=== PATIENT | male | born 1975 | race Caucasian/White ===

== ENCOUNTER 2020-09-24 09:48 | Outpatient (REF) | payer BC, SELFPAY | END 2020-09-24 09:49 | disposition home or self-care (01) | LOC: HO.XRAY 09:48 | PROVIDERS: PCP Family Medicine; Referring Provider Family Medicine; Visit Provider Family Medicine | DX: Z13.89 Encounter for screening for other disorder (principal) ==

== ENCOUNTER 2020-09-26 14:10 | Outpatient (REF) | payer BC, SELFPAY ==
--- NOTE | 2020-09-26 14:13 | FL_ITS ---
EXAMINATION: XR BARIUM SWALLOW CLINICAL INFORMATION: Dysphagia COMPARISON: None TECHNIQUE: Fluoroscopy guidance was provided for barium swallow performed by the speech and hearing department. The patient was administered liquid barium and various food media mixed with barium. FINDINGS: No aspiration or penetration is seen with any media. FLUOROSCOPY TIME: 0.8 DOSE AREA PRODUCT: 2.5 ornelas per centimeter squared. Total dose 8.5 mgy. 1 saved fluoroscopic image. FL/FL barium swallow modified IMPRESSION: Fluoroscopic guidance performed for modified barium swallow. No aspiration or seen. See speech and hearing report for detailed findings.
== END 2020-09-26 14:11 | disposition home or self-care (01) ==
LOC: HO.XRAY 14:10
PROVIDERS: PCP Family Medicine; Visit Provider Family Medicine
DX: R13.10 Dysphagia, unspecified (principal)
CPT/HCPCS: 74230; 92611

== ENCOUNTER 2022-06-20 14:20 | Outpatient (REF) | payer BC, SELFPAY ==
--- NOTE | ~2022-06-20 | XR_ITS ---
EXAMINATION: XR LUMBOSACRAL SPINE CLINICAL INFORMATION: Lower back pain. COMPARISON: None TECHNIQUE: AP and lateral views of the lumbar spine and lateral view of the lumbosacral junction. FINDINGS: The vertebral bodies and posterior elements are normal. The disc spaces are preserved, and the vertebral alignment is normal. There is multi-level mild lower thoracic and lumbar spondylosis. The paraspinal soft tissues are normal. Ingested particulate matter is noted within the colon. XR/XR lumbar spine 2-3V IMPRESSION: 1. No acute fracture or spondylolisthesis is seen. 2. The lumbar disc spaces are well-maintained. 3. There is multi-level mild lower thoracic and lumbar anterior spondylosis.
== END 2022-06-20 14:21 | disposition home or self-care (01) ==
LOC: HO.XRAY 14:20
PROVIDERS: PCP Family Medicine; Visit Provider Family Medicine
DX: M54.50 Low back pain, unspecified (principal)
CPT/HCPCS: 72100

== ENCOUNTER 2022-07-22 07:00 | Outpatient (RCR) | payer BC, SELFPAY | END 2022-08-26 09:11 | disposition home or self-care (01) | LOC: HO.PTCHIC 07:00 | PROVIDERS: PCP Family Medicine; Visit Provider Family Medicine | DX: M54.32 Sciatica, left side (principal) | CPT/HCPCS: 97012; 97014; 97110; 97112; 97140; 97161; 97530 ==

== ENCOUNTER 2023-10-15 08:43 | Outpatient (AMB) | payer BC, SELFPAY ==
--- NOTE | 2023-10-15 08:54 | MHC.OFFWIV ---
Intake Vital Signs 10/15/23 09:42 Height 5 ft 11 in Weight 227 lb BMI 31.7 BP 120/80 Blood Pressure Location Lt brachial Position Sitting Pulse 79 Pulse Source Pulse Oximeter Temp 97.5 F Temp Source Temporal Artery Scan Pulse Oximetry (%) 98 Oxygen Delivery Method Room Air Intake Visit Reasons: EP Stomach Bug [phone] Intake Note: pt is here today for stomach bug started 1 week ago Patient Tobacco Use Status: Never used Tobacco Allergies No Known Allergies [No Known Allergies*] Allergy (Verified 10/15/23 09:36) Do you need a note to return to daycare/school/sports/work: No HPI HPI Comments History of Present Illness Details He presents to office with 1-2 weeks of stomach bug + upset stomach Loose stool He denies recent travel No one else sick He denies blood or black stool No fever or chills He said no pain, more uncomfortable 04/27 He denies abdominal surgeries He has tried imodium, vitamin C/D3 without relief He said loose stool every time No nausea/vomiting PFSH Social History Patient Tobacco Use Status: Never used Tobacco Review of Systems Const Denies body aches, Denies chills, Denies fatigue and Denies fever(s) ENT Denies dysphagia, Denies otalgia, Denies nasal congestion and Denies sore throat Card Denies chest pain and Denies dyspnea Resp Denies cough and Denies dyspnea GI Reports abdominal pain (cramping), Denies melena, Denies hematochezia, Reports change in stool character, Denies constipation, Denies dysphagia, Denies heartburn, Denies fecal incontinence, Reports loose stools, Denies nausea and Denies vomiting Denies urinary frequency, Denies urinary hesitancy, Denies urinary incontinence and Denies urinary urgency Musc Denies back pain Endo Denies fatigue Physical Exam Vital Signs: Last Vital Signs Temp 97.5 F 10/15/23 09:42 Pulse 79 10/15/23 09:42 BP 120/80 10/15/23 09:42 Pulse Ox 98 10/15/23 09:42 Oxygen Delivery Method Room Air 10/15/23 09:42 BMI result Body Mass Index 31.7 General: Non-toxic, NAD. Speaking full sentences. Skin: Warm dry throughout Eye: PERRL, EOMI HENT: Airway patent. Uvula midline. No pharyngeal erythema or edema. No COLORIST PHOTOGRAPHY. Mucosal membranes moist Respiratory: CTA bilaterally. No wheezes, rales or rhonchi Cardiac: RRR. No murmur Abdominal: BS present. Non-tender throughout. No palpable masses. No abdominal distention or pusatile mass. No CVAT MSK: Full ROM extremities. Neurology: A/O. No aphasia or facial droop. Gait without abnormality Psych: Good mood and affect Assessment & Plan Assessment & Plan (1) Diarrhea: Code(s): R19.7 - Diarrhea, unspecified Qualifiers: Diarrhea type: presumed infectious Qualified Code(s): R19.7 - Diarrhea, unspecified Plan: Patient seen and evaluated. No acute abdomen on exam Moist mucosal membranes We dicussed differential such as dehydration, diverticulitis, colitis, parasite and will obtain stool cultures. Discussed symptoms of diverticulitis or concerns for ED such as blood, black stools, worsening/constant pain, dehydration, incontinence. Will follow bland diet and fluid hydration PCP follow up for ? GI referral Patient gave verbal understanding and had no additional questions or concerns at time of discharge All questions answered Orders: Orders GI Panel Today R19.7 - Diarrhea, unspecified Ova and Parasite Today R19.7 - Diarrhea, unspecified Coding Level of Care Code Est Pt Level 3 (04283) Diagnoses Diarrhea of presumed infectious origin R19.7 Diarrhea type: presumed infectious
[2023-10-15 09:42] VITALS: BP 120/80; PULSE 79; TEMP 36.4; O2SAT 98; BMI 31.7
== END 2023-10-15 10:13 | disposition home or self-care (01) ==
PROVIDERS: PCP Nurse Practitioner Family; Visit Provider Physician Assistant
DX: R19.7 Diarrhea, unspecified (principal)
CPT/HCPCS: 99213

== ENCOUNTER 2023-11-04 14:18 | Outpatient (AMB) | payer BC, SELFPAY ==
--- NOTE | 2023-11-04 14:21 | A.OFFPC_ITS ---
Vital Signs 11/04/23 14:24 Height 5 ft 11 in Weight 230 lb BMI 32.1 BP 130/90 H Blood Pressure Location Lt brachial Position Sitting Pulse 68 Pulse Source Pulse Oximeter Pulse Oximetry (%) 97 Oxygen Delivery Method Room Air Intake Visit Reasons: New patient-establish care Intake Note: Patient here to establish care and would like to talk about eczema. Allergies No Known Allergies [No Known Allergies*] Allergy (Verified 11/04/23 14:46) Medication List - Last Reconciled 11/04/23 by EDWARD Ramirez omeprazole 20 mg PO BID Tobacco use date assessed: 11/04/23 Dental Screening Dental Screen Date: 11/04/23 Did you have a dental visit in the last 12 months?: Yes Did you have a dental problem in the last 6 months where you did not have access to dental care?: No Was dental information given to patient?: Patient has dentist HPI New patient-establish care HPI Details New pt is here for a PE. Will order labs. Colon screen is up to date according to pt. Pt follows up with GI in [place], will track down notes. Pt's blood pressure is elevated. Will have pt monitor his blood pressure at home and drop off readings in the near future. Denies chest pain, shortness of breath, headach e, dizziness, and blurred vision. [facility] Medical History (Updated 11/04/23 @ 15:03 by EDWARD Ramirez) HTN (hypertension) Anxiety and depression Eczema Social History Housing: House Patient Tobacco Use Status: Never used Tobacco e-Cigarette/Vaping Use: Never Used service: No Current occupational status: employed Current occupation: [employer] Cognitive needs: No Hearing needs: No Vision needs: Yes Questionnaire PHQ-9 Over the last 2 weeks, how often have you been bothered by any of the following problems? 1. Little interest or pleasure in doing things: not at all 2. Feeling down, depressed, or hopeless: not at all 3. Trouble falling or staying asleep, or sleeping too much: not at all 4. Feeling tired or having little energy: not at all 5. Poor appetite or overeating: not at all 6. Feeling bad about yourself - or that you are a failure or have let yourself or your family down: not at all 7. Trouble concentrating on things, such as reading the newspaper or watching television: not at all 8. Moving or speaking so slowly that other people could have noticed. Or the opposite - being so fidgety or restless that you have been moving around a lot more than usual: not at all 9. Thoughts that you would be better off or of hurting yourself in some wa y: not at all Total score: 0 Depression Screening Interpretation: Negative Depression Screening Done: Yes 95266 - PHQ-9 Billing: Yes Source: Developed by Drs. Luis Alberto Crawley, Graciela Wilson, Jeremy Olivares and colleagues, with an educational homer from [employer]. Thrive Questionnaire Date Thrive assessed: 11/04/23 I am a: Patient What is your living situation today?: I have a steady place to live Within the past 12 months, did the food you bought not last and you didn't have the money to get more?: Never true Within the past 12 months, did you worry whether your food would run out before you got money to buy more?: Never true Do you have trouble paying for medicines?: No Do you have trouble getting transportation to medical appointments?: No Do you have trouble paying your heating and electricity bill?: No Do you have trouble taking care of your child, family member or friend?: No Do you have trouble with day-to-day activities such as bathing, preparing meals, shopping, managing finances, etc.?: No Are you currently unemployed and looking for a job?: No Are you interested in more education?: No AUDIT C Alcohol Use Questionnaire (AUDIT-C) 1. How often do you have a drink containing alcohol?: Monthly or less 2. How many drinks containing alcohol do you have on a typical day when you are drinking?: 1 or 2 3. How often do you have six or more drinks on one occasion?: Never Total Score: 1 Score Reviewed/Action Taken: No AZRIA-7 AMB Questionnaire ZARIA-7 Date ZARIA - 7 assessed: 11/04/23 Feeling nervous, anxious, or on edge: 0 = Not at all Not being able to stop or control worryin = Not at all Worrying too much about different things: 0 = Not at all Trouble relaxin = Not at all Being so restless that it is hard to sit still: 0 = Not at all Becoming easily annoyed or irritable: 0 = Not at all Feeling afraid as if something awful might happen: 0 = Not at all Total ZARIA-7 score (0-4 normal; 5-9 mild; 10-14 moderate; 15-21 severe): 0 Source: Developed by Drs. Luis Alberto Crawley, Graciela Wilson, Jeremy Olivares and colleagues, with an educational homer from [employer]. ZARIA-7 Assessment Billing ZARIA-7 Assessment Tool: ZARIA-7 Assessment 62981 Review of Systems Const Denies chills and Denies fever(s) Eyes Denies blurry vision ENT Denies vertigo, Denies dizziness and Denies sore throat Card Denies chest pain at rest, Denies chest pain with activity, Denies diaphoresis, Denies dyspnea and Denies dyspnea on exertion Resp Denies cough, Denies dyspnea, Denies dyspnea on exertion and Denies wheezing GI Denies abdominal pain, Denies melena, Denies hematochezia, Denies constipation, Denies diarrhea and Denies loose stools Denies hematuria Musc Denies numbness and Denies tingling Skin/Breast Denies lesions Neuro Denies vertigo, Denies dizziness, Denies numbness and Denies tingling Psych Denies anxiety, Denies depression, Denies homicidal ideation, Denies suicidal ideation and Denies other (substance abuse) Aller/Immun Denies wheezing Physical exam (Primary Care) Vital Signs: Last Vital Signs Pulse 68 11/04/23 14:24 BP 130/90 H 11/04/23 14:24 Pulse Ox 97 11/04/23 14:24 Oxygen Delivery Method Room Air 11/04/23 14:24 BMI result Body Mass Index 32.1 Tobacco/Smoking Status: Tobacco use Status Tobacco use date assessed 11/04/23 11/04/23 14:27 Patient Tobacco Use Status Never used Tobacco 11/04/23 14:27 e-Cigarette/Vaping Use Never Used 11/04/23 14:27 Depression Screening Interpretation: Negative Const General: cooperative Nutritional Appearance: obese Orientation/consciousness: patient oriented x3 HENMT Head: Yes normal to inspection, Yes normocephalic and Yes atraumatic Ears: TM's normal bilaterally Eyes General: appearance normal, both eyes and all related structures Alignment and Position: alignment normal and position normal Neck Neck: Yes normal visual inspection and Yes no lymphadenopathy Thyroid: Thyroid normal Resp Effort & Inspection: normal respiratory effort Auscultation: clear to auscultation bilaterally Cardio Rate: regular rate Rhythm: regular rhythm Heart sounds: S1 normal heart sound present, S2 normal heart sound present and no murmurs GI Palpation (GI): Soft to palpation and nontender Auscultation: normal bowel sounds Male General Exam: Yes normal external exam Penis: normal penis Scrotum: scrotum normal, testes descended bilaterally and no inguinal hernias Testes: no testicular mass Skin Other: eczema to left elbow, small singular lesions throughout back and abdomen Neuro General: patient oriented x3, moves all extremities, no focal motor deficits and deep tendon reflexes 2+ bilaterally Romberg Test: Negative Psych Appearance: grossly normal Mental Status: mental status grossly normal Speech and movement: Normal speech and movement present Affect: normal affect Attitude: cooperative Thought process: Normal thought process present Thought content: Normal thought content present Insight: Good insight present (Psych) Judgement: Good judgement present (Psych) Assessment and Plan Assessment & Plan (1) Encounter for routine adult physical exam with abnormal findings: Code(s): Z00. - Encounter for general adult medical examination with abnormal findings Plan: Labs ordered (2) HTN (hypertension): Code(s): I10 - Essential (primary) hypertension Plan: Pt will monitor his BP at home and drop off readings in the near future Plan The patient agreed to the use of a medical diagnostic radiographer for this encounter. Scribed for EDWARD Carney by Dede Ferraro medical diagnostic radiographer, on 11/04/2023 at 14:45 EST. Orders: Orders Complete Blood Count Auto Diff Today Z00. - Encounter for general adult medical examination with abnormal findings Comprehensive [place]. Panel Fast Today Z00. - Encounter for general adult medical examination with abnormal findings TSH reflex Free T4 Today Z00. - Encounter for general adult medical examination with abnormal findings UA CC w/rflx Micro + Cult Today Z00.01 - Encounter for general adult medical examination with abnormal findings Lipid Panel Today Z00.01 - Encounter for general adult medical examination with abnormal findings Coding Level of Care Code New Pt Prev Care 40-64y(47790) Diagnoses Encounter for routine adult physical exam with abnormal findings Z00. HTN (hypertension) I10 Additional Codes ZARIA-7 Assessment Billing - ZARIA-7 Assessment Tool: ZARIA-7 Assessment 83240 ([id number])
[2023-11-04 14:24] VITALS: BP 130/90; PULSE 68; O2SAT 97; BMI 32.1
== END 2023-11-04 15:34 | disposition home or self-care (01) ==
PROVIDERS: PCP Nurse Practitioner Family; Visit Provider Nurse Practitioner Family
DX: Z00.01 Encounter for general adult medical examination with abnormal findings (principal); I10 Essential (primary) hypertension
CPT/HCPCS: 99386

== ENCOUNTER 2023-12-10 09:07 | Outpatient (REF) | payer BC, SELFPAY ==
[2023-12-10 11:23] LABS: MANUAL DIFF FLAG NO
[2023-12-10 11:36] LABS: Basophils Percent Auto 0.7 % (0-2); Eosinophils Absolute Auto 0.2 X10*3/uL (0.0-0.4); Hematocrit 47.5 % (42.0-52.0); Imm Gran Abs Auto 0.01 X10*3/uL (0.00-0.03); Imm Gran Pct Auto 0.2 % (0.0-0.4); Lymphocytes Absolute Auto 1.2 X10*3/uL (1.2-4.9); Lymphocytes Percent Auto 26.7 % (20-40); Mean Corpuscular HGB Conc 33.7 g/dl (31.0-36.0); Mean Platelet Volume 9.4 fL (9.4-12.4); Monocytes Absolute Auto 0.4 X10*3/uL (0.1-1.2); Monocytes Percent Auto 7.8 % (2-11); Neutrophils Absolute Auto 2.8 x10*3/uL (2.0-8.3); Neutrophils Percent Auto 59.6 % (45-73); Platelet Count 245 X10*3/uL (160-400); Red Blood Count 5.34 X10*6/uL (4.60-5.80); White Blood Count 4.6 X10*3/uL (4.8-10.8)
[2023-12-10 11:52] LABS: Alanine Aminotransferase 20 U/L (0-40); Albumin Level 4.4 g/dL (3.5-5.0); Alkaline Phosphatase 56 U/L (39-117); Anion Gap 13 (12-20); Aspartate Amino Transferase 17 U/L (5-37); Bilirubin Total 1.1 mg/dL (0.0-1.0); Blood Urea Nitrogen 12 mg/dL (9-16); Calcium 9.7 mg/dL (8.4-10.2); Carbon Dioxide 27 mmol/L (22-29); Chloride 108 mmol/L (96-108); Cholesterol 165 mg/dL (<200); Estimated Glomerular Filt Rate > 60; Glucose Fasting 105 mg/dL (60-99); HDL Cholesterol 43 mg/dL (>40); LDL Cholesterol Calculated 103 mg/dL (<100); Potassium 3.6 mmol/L (3.3-5.1); Sodium 144 mmol/L (135-145); Total Protein 7.2 g/dL (6.5-8.0); Triglycerides 96 mg/dL (<150)
[2023-12-10 12:09] LABS: TSH reflex Free T4 1.02 uIU/mL (0.32-4.0)
[2023-12-10 16:00] LABS: Appearance Urine Cloudy; Color Urine Yellow; Glucose Urine UA Negative (Negative); Leukocyte Esterase Urine Negative (Negative); Nitrite Urine Negative (Negative); Urine Blood Negative (Negative); Urine Ketones Negative (Negative); Urine Protein Negative (Neg-Trace)
== END 2023-12-10 09:08 | disposition home or self-care (01) ==
LOC: HO.HMGCLDS 09:07
PROVIDERS: PCP Nurse Practitioner Family; Visit Provider Nurse Practitioner Family
DX: Z00.01 Encounter for general adult medical examination with abnormal findings (principal); Z20.2 Contact with and (suspected) exposure to infections with a predominantly sexual mode of transmission
CPT/HCPCS: 36415; 80053; 80061; 81003; 84443; 85025

== ENCOUNTER 2024-05-09 14:57 | Outpatient (AMB) | payer BC, SELFPAY ==
[2024-05-09 15:04] VITALS: BP 142/102; PULSE 68; O2SAT 98; BMI 33.4
--- NOTE | 2024-05-09 15:04 | A.OFFPC_ITS ---
Vital Signs 05/09/24 15:04 Height 5 ft 11 in Weight 239 lb 6 oz BMI 33.4 BP 142/102 H Blood Pressure Location Lt brachial Position Sitting Pulse 68 Pulse Source Pulse Oximeter Pulse Oximetry (%) 98 Oxygen Delivery Method Room Air Intake Visit Reasons: 6 month fu Intake Note: Pt is here today for 6 month follow up. Allergies No Known Allergies [No Known Allergies*] Allergy (Verified 05/09/24 15:05) Medication List - Last Reconciled 05/09/24 by EDWARD Ramirez omeprazole 20 mg PO BID Tobacco use date assessed: 05/09/24 Dental Screening Dental Screen Date: 05/09/24 Did you have a dental visit in the last 12 months?: Yes Did you have a dental problem in the last 6 months where you did not have access to dental care?: No Was dental information given to patient?: Patient has dentist HPI 6 month fu HPI Details HTN: Blood pressure is elevated today. He is not on any medications for this. Will start amlodipine 2.5mg and losartan 25mg (will have pt start one med at a time). Will have pt monitor his BP at home and drop off readings in 1 month. Denies chest pain, shortness of breath, headache, dizziness, and blurred vision. [facility] Medical History HTN (hypertension) Anxiety and depression Eczema Social History Housing: House Patient Tobacco Use Status: Never used Tobacco e-Cigarette/Vaping Use: Never Used service: No Current occupational status: employed Current occupation: [employer] Cognitive needs: No Hearing needs: No Vision needs: Yes Questionnaire PHQ-9 Over the last 2 weeks, how often have you been bothered by any of the following problems? 1. Little interest or pleasure in doing things: not at all 2. Feeling down, depressed, or hopeless: not at all 3. Trouble falling or staying asleep, or sleeping too much: not at all 4. Feeling tired or having little energy: not at all 5. Poor appetite or overeating: not at all 6. Feeling bad about yourself - or that you are a failure or have let yourself or your family down: not at all 7. Trouble concentrating on things, such as reading the newspaper or watching television: not at all 8. Moving or speaking so slowly that other people could have noticed. Or the opposite - being so fidgety or restless that you have been moving around a lot more than usual: not at all 9. Thoughts that you would be better off or of hurting yourself in some way: not at all Total score: 0 Depression Screening Interpretation: Negative Depression Screening Done: Yes 40713 - PHQ-9 Billing: Yes Source: Developed by Drs. Luis Alberto Crawley, Graciela Wilson, Jeremy Olivares and colleagues, with an educational homer from [employer]. Thrive Questionnaire Date Thrive assessed: 05/09/24 I am a: Patient What is your living situation today?: I have a steady place to live Within the past 12 months, did the food you bought not last and you didn't have the money to get more?: Never true Within the past 12 months, did you worry whether your food would run out before you got money to buy more?: Never true Do you have trouble paying for medicines?: No Do you have trouble getting transportation to medical appointments?: No Do you have trouble paying your heating and electricity bill?: No Do you have trouble taking care of your child, family member or friend?: No Do you have trouble with day-to-day activities such as bathing, preparing meals, shopping, managing finances, etc.?: No Are you currently unemployed and looking for a job?: No Are you interested in more education?: No Please select the resources that you would like help with: Housing/Intermediate Currently or been in a relationship where the following occur: No concerns reported THRIVE Score: 0 AUDIT C Alcohol Use Questionnaire (AUDIT-C) 1. How often do you have a drink containing alcohol?: Monthly or less 2. How many drinks containing alcohol do you have on a typical day when you are drinking?: 1 or 2 3. How often do you have six or more drinks on one occasion?: Never Total Score: 1 Score Reviewed/Action Taken: Yes ZARIA-7 AMB Questionnaire ZARIA-7 Date ZARIA - 7 assessed: 05/09/24 Feeling nervous, anxious, or on edge: 0 = Not at all Not being able to stop or control worryin = Not at all Worrying too much about different things: 0 = Not at all Trouble relaxin = Not at all Being so restless that it is hard to sit still: 0 = Not at all Becoming easily annoyed or irritable: 0 = Not at all Feeling afraid as if something awful might happen: 0 = Not at all Total ZARIA-7 score (0-4 normal; 5-9 mild; 10-14 moderate; 15-21 severe): 0 Source: Developed by Drs. Luis Alberto Crawley, Graciela Wilson, Jeremy Olivares and colleagues, with an educational homer from [employer]. ZARIA-7 Assessment Billing ZARIA-7 Assessment Tool: ZARIA-7 Assessment 26136 Review of Systems Const Reports as per HPI Physical exam (Primary Care) Vital Signs: Last Vital Signs Pulse 68 05/09/24 15:04 BP 142/102 H 05/09/24 15:04 Pulse Ox 98 05/09/24 15:04 Oxygen Delivery Method Room Air 05/09/24 15:04 BMI result Body Mass Index 33.4 Tobacco/Smoking Status: Tobacco use Status Tobacco use date assessed 05/09/24 05/09/24 15:06 Patient Tobacco Use Status Never used Tobacco 05/09/24 15:06 e-Cigarette/Vaping Use Never Used 05/09/24 15:06 PHQ-9: PHQ-9 Score PHQ-9: Total score 0 05/09/24 15:06 Depression Screening Interpretation: Negative Thrive Assessment: Date of Thrive Assessment Date Thrive assessed 05/09/24 05/09/24 15:06 Currently or been in a relationship where the following occur: No concerns reported Const General: cooperative Orientation/consciousness: patient oriented x3 Resp Effort & Inspection: normal respiratory effort Auscultation: clear to auscultation bilaterally Cardio Rate: regular rate Rhythm: regular rhythm Heart sounds: S1 normal heart sound present and S2 normal heart sound present Neuro General: patient oriented x3 Extrem Right lower extremity: no edema Left lower extremity: no edema Psych Appearance: grossly normal Mental Status: mental status grossly normal Speech and movement: Normal speech and movement present Affect: normal affect Attitude: cooperative Thought process: Normal thought process present Thought content: Normal thought content present Insight: Good insight present (Psych) Judgement: Good judgement present (Psych) Assessment and Plan Assessment & Plan (1) HTN (hypertension): Code(s): I10 - Essential (primary) hypertension Plan The patient agreed to the use of a medical records library professor for this encounter. Scribed for EDWARD Carney by Dede Ferraro medical records library professor, on 05/09/2024 at 15:20 EST. Orders: Orders Comprehensive Met. Panel Today I10 - Essential (primary) hypertension Medications: New amlodipine 2.5 mg PO DAILY 30 days 30 tabs 2RF losartan 25 mg PO DAILY 30 days 30 tabs 2RF Coding Level of Care Code Est Pt Level 3 (81390) Diagnoses HTN (hypertension) I10 Additional Codes ZARIA-7 Assessment Billing - ZARIA-7 Assessment Tool: ZARIA-7 Assessment 95043 ([id number])
== END 2024-05-09 15:32 | disposition home or self-care (01) ==
PROVIDERS: PCP Nurse Practitioner Family; Visit Provider Nurse Practitioner Family
DX: I10 Essential (primary) hypertension (principal)
CPT/HCPCS: 99213

== ENCOUNTER 2024-08-05 12:51 | Outpatient (REF) | payer BC, SELFPAY ==
[2024-08-05 16:51] LABS: Alanine Aminotransferase 24 U/L (0-40); Albumin Level 4.7 g/dL (3.5-5.0); Alkaline Phosphatase 58 U/L (39-117); Anion Gap 11 (12-20); Aspartate Amino Transferase 18 U/L (5-37); Bilirubin Total 0.9 mg/dL (0.0-1.0); Blood Urea Nitrogen 16 mg/dL (9-16); Calcium 9.8 mg/dL (8.4-10.2); Carbon Dioxide 29 mmol/L (22-29); Chloride 103 mmol/L (96-108); Estimated Glomerular Filt Rate > 60; Glucose Random 100 mg/dL (60-115); Potassium 3.7 mmol/L (3.3-5.1); Sodium 139 mmol/L (135-145); Total Protein 7.4 g/dL (6.5-8.0)
== END 2024-08-05 12:52 | disposition home or self-care (01) ==
LOC: HO.HMGCLDS 12:51
PROVIDERS: PCP Nurse Practitioner Family; Visit Provider Nurse Practitioner Family
DX: I10 Essential (primary) hypertension (principal)
CPT/HCPCS: 36415; 80053

== ENCOUNTER 2024-09-03 09:06 | Outpatient (REF) | payer BC, SELFPAY ==
--- NOTE | ~2024-09-03 | XR_ITS ---
EXAMINATION: XR CHEST CLINICAL INFORMATION: R05.2 - Subacute cough COMPARISON: History dated September 28, 2015 TECHNIQUE: 2 views of the chest were obtained. FINDINGS: Linear opacities in the lower hemithoraces system from the inferior pulmonary perihilum. Pulmonary reticular pattern. No pleural effusion. No pneumothorax. Cardiomediastinal silhouette is normal in size. Multilevel thoracic stenosis. XR/XR chest 2V IMPRESSION: Concerning acute to subacute inflammatory versus infectious process. Electronically signed by: Haris Aldana MD 09/05/2024 07:11 AM [place]
== END 2024-09-03 09:07 | disposition home or self-care (01) ==
LOC: HO.HMGCX 09:06
PROVIDERS: PCP Nurse Practitioner Family; Visit Provider Nurse Practitioner Family
DX: R05.2 Subacute cough (principal)
CPT/HCPCS: 71046

== ENCOUNTER 2024-09-03 09:06 | Outpatient (AMB) | payer BC, SELFPAY ==
[2024-09-03 09:09] VITALS: BP 120/90; PULSE 80; TEMP 37; O2SAT 98; BMI 33.3
--- NOTE | 2024-09-03 09:09 | AM.OFFWIN_ITS ---
Intake Vital Signs 09/03/24 09:09 Height 5 ft 11 in Weight 239 lb BMI 33.3 BP 120/90 H Blood Pressure Location Lt brachial Position Sitting Pulse 80 Pulse Source Pulse Oximeter Temp 98.6 F Temp Source Oral Pulse Oximetry (%) 98 Intake Visit Reasons: EP cough 1 week Intake Note: pt is here for cough, ongoing for 1 week Patient Tobacco Use Status: Never used Tobacco Allergies No Known Allergies [No Known Allergies*] Allergy (Verified 09/03/24 09:09) Do you need a note to return to daycare/school/sports/work: No HPI HPI Comments History of Present Illness Details 49 y/o male patient who presents to the walk in clinic with c/o cough x 1 week. Reports using most of the OTC cough medicines with no relief. Denies fevers, chills, nausea or vomiting. [facility] Medical History HTN (hypertension) Anxiety and depression Eczema Surgical History (Updated 07/18/24 @ 16:55 by EDWARD Ramirez) History of exam under anesthesia with hemorrhoid banding Social History Housing: House Patient Tobacco Use Status: Never used Tobacco e-Cigarette/Vaping Use: Never Used service: No Current occupational status: employed Current occupation: [employer] Cognitive needs: No Hearing needs: No Vision needs: Yes Review of Systems Const All systems reviewed & are unremarkable except as noted in HPI and below Physical Exam Vital Signs: Last Vital Signs Temp 98.6 F 09/03/24 09:09 Pulse 80 09/03/24 09:09 BP 120/90 H 09/03/24 09:09 Pulse Ox 98 09/03/24 09:09 BMI result Body Mass Index 33.3 Const General: cooperative and no acute distress Nutritional Appearance: overweight Orientation/consciousness: patient oriented x3 HEENT Head: Yes normocephalic Ears: external ears normal and TM abnormal with fluid behind the TM bilateral; not bulging, not perforated and not retracted General nose exam: Abnormal mucous membranes and turbinates present erythematous Face and sinus: Yes sinuses nontender Mouth: moist mucous membranes Throat: Yes tonsils normal and Yes uvula midline Resp Effort & Inspection: normal respiratory effort and Actively coughing Auscultation: no crackles, no rales, no rhonchi and wheezes (mild wheezing on inspiratory.) Cardio Heart sounds: S1 normal heart sound present and S2 normal heart sound present Neuro General: patient oriented x3, gait normal and moves all extremities Psych Speech and movement: Normal speech and movement present Assessment & Plan Assessment & Plan (1) Cough: Code(s): R05.9 - Cough, unspecified Qualifiers: Cough type: subacute Qualified Code(s): R05.2 - Subacute cough Plan: Ordered chest Xray. OTC cough remedies Hydrate with warm fluids and honey. Orders: Orders XR chest 2V Today R05.2 - Subacute cough Medications: New benzonatate 100 mg PO TID 90 caps 0RF R05.2 - Subacute cough dextromethorphan-guaifenesin 5-100 mg/5 mL (Robitussin Cough-Chest Congestion DM) 10 mL PO Q4-8H PRN 1,000 mL 0RF cough R05.2 - Subacute cough Coding Level of Care Code Est Pt Level 4 (49052) Diagnoses Subacute cough R05.2 Cough type: subacute Time Spent (min) 20
== END 2024-09-03 10:10 | disposition home or self-care (01) ==
PROVIDERS: PCP Nurse Practitioner Family; Visit Provider Nurse Practitioner Family
DX: R05.2 Subacute cough (principal)

== ENCOUNTER → 2024-09-03 09:21 | Outpatient (BNV) | payer BC, SELFPAY | PROVIDERS: PCP Nurse Practitioner Family; Visit Provider Radiology Diagnostic Radiology | DX: R05.2 Subacute cough (principal) | CPT/HCPCS: 71046 ==

== ENCOUNTER 2024-11-22 15:51 | Outpatient (AMB) | payer BC, SELFPAY ==
--- OUTSIDE RECORDS SUMMARY | 2024-11-22 15:53 | XMS_ITS | Encounter Summary ---
Author Organization [facility] Address [address] [place] [address] Care Team Providers Care Gas Processing Plant Operator Name Role Phone Tre Blanchard MD Primary Care Provider [phone] Encounter Details Date Type Department Care Team (Late st Contact Info) Description 07/04/2024 Scanned Document [facility] [address] [place] [address] Amna Akhtar MD [address] [place] [address] [place] [address] Social History Tobacco Use Types Packs/Day Years Used Date Smoking Tobacco: Never Smokeless Tobacco: Never Alcohol Use Standard Drinks/Week Comments Yes 0 (1 standard drink = 0.6 oz pur e alcohol) occ Sex and Gender Information Value Date Recorded Sex Assigned at Not on file Gender Identity Not on file Sexual Orientation Not on file documented as of this encounter Plan of Treatment Not on file documented as of this encounter Procedures Procedure Name Priority Date/Time Associated Diagnosis Comments HX GASTROENTEROLOGY COLONOSCOPY-SCAN 07/04/2024 12:56 PM EDT documented in this encounter Results * HX GASTROENTEROLOGY COLONOSCOPY-SCAN (07/04/2024 12:56 PM EDT) Amna Akhtar MD HX AMB PROCEDURES documented in this encounter Visit Diagnoses Not on filedocumented in this encounter Care Teams Gas Processing Plant Operator Relationship Specialty Start Date End Date Tre Blanchard MD [address] [place] [address] PCP - General Family Medicine 11/09/23 documented as of this encounter
--- OUTSIDE RECORDS SUMMARY | 2024-11-22 15:53 | XMS_ITS | Encounter Summary ---
Author Organization [facility] Address [address] [place] [address] Care Team Providers Care Instructional Consultant Name Role Phone Benito Cuellar MD Primary Care Provider [phone] Tre Blanchard MD Primary Care Provider + [phone] Encounter Details Date Type Department Care Team (Late st Contact Info) Description 03/24/2023 Scanned Document [facility] [address] [place], [place] [phone] Amna Akhtar MD [address] [place] [address] Social History Tobacco Use Types Packs/Day Years [...] on file documented as of this encounter Visit Diagnoses Not on filedocumented in this encounter Care Teams Instructional Consultant Relationship Specialty Start Date End Date Benito Cuellar MD [address] [place] [address] [place] [address] PCP - General Internal Medicine 06/08/18 11/08/23 Tre Blanchard MD [address] [facility] [place] [address] PCP - General Family Medicine 11/09/23 documented as of this encounter
--- OUTSIDE RECORDS SUMMARY | 2024-11-22 15:53 | XMS_ITS | Encounter Summary ---
Author Organization [facility] Address [address] [place] [address] Care Team Providers Care Cloud Software Engineer Name Role Phone Benito Cuellar MD Primary Care Provider [phone] Tre Blanchard MD Primary Care Provider + [phone] Reason for Visit * Reason Comments Med Change Request Encounter Details Date Type Department Care Team (Late st Contact Info) Description 03/20/[address] [facility] [address] [place], [place] [address] Amna Akhtar MD [address] [place] [address] Grade II hemorrhoids Social History Tobacco Use Types Packs/Day Years [...] documented as of this encounter Visit Diagnoses Diagnosis Grade II hemorrhoids documented in this encounter Care Teams Cloud Software Engineer Relationship Specialty Start Date End Date Benito Cuellar MD [address] [place] [address] [place] [address] PCP - General Internal Medicine 06/08/18 11/08/23 Tre Blanchard MD [address] [facility] [place] [address] PCP - General Family Medicine 11/09/23 documented as of this encounter
--- OUTSIDE RECORDS SUMMARY | 2024-11-22 15:53 | XMS_ITS | Clinical Summary ---
Author Organization [facility] Address [address] [place] [address] Care Team Providers Care Mechanical Test Technician Name Role Phone Tre Blanchard MD Primary Care Provider Allergies No known active allergies Medications Medication Sig Dispensed Refills Start Date End Date Status desipramine (NORPRAMIN) 25 MG tablet TAKE 1 TABLET BY MOUTH EVERYDAY AT BEDTIME 4 05/24/2018 Active PROCTOSOL HC 2.5 % rectal cream 2 (two) times a day. Apply to affected area 0 06/04/2018 Active TRULANCE 3 MG tablet Take 3 mg by mouth daily. 3 06/01/2018 Active Lidocaine, Anorectal, (RectiCare) 5 % CreamIndications:Gr clara II hemorrhoids,Rectal bleeding Apply topically 2 (two) times a day. 30 g 12/31/2020 Active hydrocort-pramoxine (ANALPRAM-HC) 2.5-1 % rectal creamIndications:Gr clara II hemorrhoids Insert into the rectum 3 (three) times a day. 48 g 5 03/20/2023 Active nitroglycerin (RECTIV) 0.4 % rectal ointmentIndications :Hemorrhoids, unspecified hemorrhoid type 1 inch by Intra-anal route 2 (two) times a day. 30 g 3 11/09/2023 Active OMEprazole (PriLOSEC) 20 MG capsuleIndications: Grade II hemorrhoids,Hemorrh oids, unspecified hemorrhoid type TAKE 1 CAPSULE BY MOUTH 2 TIMES A DAY BEFORE BREAKFAST AND DINNER. 180 capsule 1 04/01/2024 Active amLODIPine (NORVASC) 2.5 MG tablet Take 2.5 mg by mouth. 06/04/2024 Active losartan (COZAAR) 25 MG tablet Take 25 mg by mouth. 06/04/2024 Active qgtqlc-tamuydghs-je gnesium sulfates (Suprep Bowel Prep Kit) 17.5-3.13-1.6 GM/177ML Solution solutionIndications :Hemorrhoids, unspecified hemorrhoid type,Rectal bleeding Follow directions provided by physician's office. 354 mL 06/24/2024 Active losartan-hydroCHLOR Othiazide (HYZAAR) 50-12.5 MG per tablet Take 1 tablet by mouth. 07/07/2024 Active Active Problems No known active problems Social History Tobacco Use Types Packs/Day Years Used Date Smoking Tobacco: Never Smokeless Tobacco: Never Tobacco Cessation:Counseling Given: Not Answered Alcohol Use Standard Drinks/Week Comments Yes 0 (1 standard drink = 0.6 oz pur e alcohol) occ Sex and Gender Information Value Date Recorded Sex Assigned at Not on file Gender Identity Not on file Sexual Orientation Not on file Last Filed Vital Signs Vital Sign Reading Time Taken Comments Blood Pressure 149/100 07/18/2024 4:23 PM EDT Pulse 67 07/18/2024 4:23 PM EDT Temperature 36.3 ??C (97.4 ??F) 07/04/2024 1:08 PM ED T Respiratory Rate 16 07/04/2024 1:23 PM EDT Oxygen Saturation 96% 07/04/2024 1:23 PM EDT Inhaled Oxygen Concentration - - Weight 107 kg (235 lb) 07/18/2024 4:23 PM EDT Height 180.3 cm (5' 11 ) 07/18/2024 4:23 PM EDT Body Mass Index 32.78 07/18/2024 4:23 PM EDT Plan of Treatment Health Maintenance Due Date Last Done Comments Hepatitis C Virus Screening 1976 HIV Screening 1989 DTaP/Tdap/Td Vaccines (1 - Tdap) 1995 Hepatitis B Vaccines (1 of 3 - 19+ 3-dose series) 1995 Influenza Vaccine 05/19/2024 COVID-19 Vaccine ( - 2023-2 5 season) 2024 Colonoscopy 07/04/2034 07/04/2024, 07/04/2024, 06/11/2018 Pneumococcal Vaccine: Pediatric (0-5 Years) and At-Risk Patients (6 to 49 Years) Aged Out No longer eligible b ased on patient's age to complete this topic Procedures Procedure Name Priority Date/Time Associated Diagnosis Comments HX GASTROENTEROLOGY COLONOSCOPY-SCAN 07/04/2024 12:56 PM EDT from Last 3 Months or Most Recently Relevant to Health Maintenance Results * HX GASTROENTEROLOGY COLONOSCOPY-SCAN (07/04/2024 12:56 PM EDT) Amna Akhtar MD HX AMB PROCEDURES from Last 3 Months or Most Recently Relevant to Health Maintenance Care Teams Mechanical Test Technician Relationship Specialty Start Date End Date Tre Blanchard MD [address] [place] [address] PCP - General Family Medicine 11/09/23
--- OUTSIDE RECORDS SUMMARY | 2024-11-22 15:53 | XMS_ITS | Encounter Summary ---
Author Organization [facility] Address [address] [place] [address] Care Team Providers Care A/C Technician Name Role Phone Tre Blanchard MD Primary Care Provider [phone] Encounter Details Date Type Department Care Team (Late st Contact Info) Description 07/18/2024 Scanned Document [facility] [address] [place] [phone] Amna Akhtar MD [address] [place] [address] [place] [address] Social History Tobacco Use Types Packs/Day Years [...] on filedocumented in this encounter Care Teams A/C Technician Relationship Specialty Start Date End Date Tre Blanchard MD [address] [place] [address] PCP - General Family Medicine 11/09/23 documented as of this encounter
--- OUTSIDE RECORDS SUMMARY | 2024-11-22 15:53 | XMS_ITS ---
Author Name [facility] History of Medication Use Medication Directions Dispensed Refills Start Date End Date Stat Lidocaine, Anorectal, (RectiCare) 5 % Cream Apply topically 2 (two) times a day. 12/31/2020 active PROCTOSOL HC 2.5 % rectal cream 2 (two) times a day. Apply to affected area 06/04/2018 active hydrocort-pramoxine (ANALPRAM-HC) 2.5-1 % rectal cream Insert into the rectum 3 (three) times a day. 03/20/2023 active OMEprazole (PriLOSEC) 20 MG capsule Take 1 capsule (20 mg total) by mouth 2 (two) times a day before breakfast and dinner. 11/09/2023 04/01/2024 aborted amLODIPine (NORVASC) 2.5 MG tablet Take 2.5 mg by mouth. 06/04/2024 active losartan-hydroCHLOR Othiazide (HYZAAR) 50-12.5 MG per tablet Take 1 tablet by mouth. 07/07/2024 active Problems Problem Status Onset Date Problem Type Date of Resoluti on Source Grade II hemorrhoids active EncounterDiagnosisA ct CCT
[2024-11-22 16:07] VITALS: BP 120/90; PULSE 64; RESP 16; TEMP 36.7; O2SAT 97; BMI 33.2
--- NOTE | 2024-11-22 16:07 | MHC.PC.OV ---
Vital Signs 11/22/24 16:07 Height 5 ft 11 in Weight 238 lb BMI 33.2 BP 120/90 H Blood Pressure Location Rt brachial Position Sitting Respiration 16 Pulse 64 Pulse Source Pulse Oximeter Temp 98.1 F Temp Source Oral Pulse Oximetry (%) 97 Oxygen Delivery Method Room Air Intake Visit Reasons: Annual PE Intake Note: Pt is here today for his PE Allergies No Known Allergies [No Known Allergies*] Allergy (Verified 11/22/24 16:37) Medication List - Last Reconciled 11/22/24 by URSULA Ramirez- amlodipine 2.5 mg PO DAILY 30 days losartan-hydrochlorothiazide 50-12.5 mg 1 tab PO DAILY omeprazole 20 mg PO BID Tobacco use date assessed: 11/22/24 Dental Screening Dental Screen Date: 11/22/24 Did you have a dental visit in the last 12 months?: Yes Did you have a dental problem in the last 6 months where you did not have access to dental care?: No Was dental information given to patient?: Patient has dentist HPI Annual PE HPI Details History of Present Illness The patient is a 49-year-old male presenting for a routine physical examination. He has been compliant with age-appropriate health screenings. He sees a gastroenterology specialist regularly and his colon screenings are current. There is no mention of any ongoing gastrointestinal issues. The patient denies any symptoms including chest pain, shortness of breath, fevers, chills, nausea, vomiting, abdominal pain, anxiety, or depression. He also denies any suicidal ideation or homicidal ideation. The patient has been diagnosed with eczema and is under the care of a air valve repairer. Health Maintenance - Regular colon cancer screening: Up to date. - Regular dermatological evaluation for eczema. Social History Review of Systems - Cardiovascular: Denies chest pain. - Respiratory: Denies shortness of breath. - General: Denies fevers and chills. - Gastrointestinal: Denies nausea, vomiting, abdominal pain. - Psychological: Denies anxiety, depression, suicidal ideation, homicidal ideation. Physical Exam General: Cooperative, healthy appearing, comfortable, no acute distress and well developed Orientation: Patient oriented x3 Limitations: No limitations Head: Normal to inspection Ears: Hearing grossly normal bilaterally Nose: Normal external nose present Face and sinus: Normal facial exam Eyes: Appearance normal, both eyes and all related structures Neck: Normal visual inspection and Yes full ROM Respiratory: Normal respiratory effort and able to speak in complete sentences. Clear to auscultation bilaterally Cardiovascular: Regular rate and rhythm. Normal S1 and S2 GI: Normal to inspection. Soft to palpation and nontender Skin: No rashes or lesions noted, patient sees a air valve repairer for eczema Neuro: Patient oriented x3 Extremities: Normal to inspection Results Plan - Continue routine follow-ups with gastroenterology for colon health. - Maintain dermatological follow-ups for eczema management. - Encourage adherence to routine health maintenance and screenings as per age and health status. Discussion Notes I discussed with the patient that his routine colon screenings are up to date, and it is important to continue regular monitoring with his material assembler. We reviewed the current management of his eczema with his air valve repairer and emphasized the significance of maintaining these regular dermatological consultations. The patient was informed of the importance of ongoing monitoring for any new or changing symptoms, particularly in relation to his known conditions. Patient Instructions - Continue follow-ups with your material assembler for colon health management. - Stay in regular contact with your air valve repairer for managing eczema. - Maintain a schedule for routine health screenings as per age guidelines. [facility] Medical History HTN (hypertension) Anxiety and depression Eczema Surgical History History of exam under anesthesia with hemorrhoid banding Social History Housing: House Patient Tobacco Use Status: Never used Tobacco e-Cigarette/Vaping Use: Never Used service: No Current occupational status: employed Current occupation: [employer] Cognitive needs: No Hearing needs: No Vision needs: Yes Questionnaire PHQ-9 Over the last 2 weeks, how often have you been bothered by any of the following problems? 1. Little interest or pleasure in doing things: not at all 2. Feeling down, depressed, or hopeless: not at all 3. Trouble falling or staying asleep, or sleeping too much: not at all 4. Feeling tired or having little energy: not at all 5. Poor appetite or overeating: not at all 6. Feeling bad about yourself - or that you are a failure or have let yourself or your family down: not at all 7. Trouble concentrating on things, such as reading the newspaper or watching television: not at all 8. Moving or speaking so slowly that other people could have noticed. Or the opposite - being so fidgety or restless that you have been moving around a lot more than usual: not at all 9. Thoughts that you would be better off or of hurting yourself in some way: not at all Total score: 0 Depression Screening Interpretation: Negative Depression Screening Done: Yes 18206 - PHQ-9 Billing: Yes Source: Developed by Drs. Luis Alberto Crawley, Graciela Wilson, Jeremy Olivares and colleagues, with an educational homer from [employer]. Thrive Questionnaire Date Thrive assessed: 11/22/24 I am a: Patient What is your living situation today?: I have a steady place to live Within the past 12 months, did the food you bought not last and you didn't have the money to get more?: Never true Within the past 12 months, did you worry whether your food would run out before you got money to buy more?: Never true Do you have trouble paying for medicines?: No Do you have trouble getting transportation to medical appointments?: No Do you have trouble paying your heating and electricity bill?: No Do you have trouble taking care of your child, family member or friend?: No Do you have trouble with day-to-day activities such as bathing, preparing meals, shopping, managing finances, etc.?: No Are you currently unemployed and looking for a job?: No Are you interested in more education?: No Please select the resources that you would like help with: None Currently or been in a relationship where the following occur: No concerns reported THRIVE Score: 0 AUDIT C Alcohol Use Questionnaire (AUDIT-C) 1. How often do you have a drink containing alcohol?: Monthly or less 2. How many drinks containing alcohol do you have on a typical day when you are drinking?: 1 or 2 3. How often do you have six or more drinks on one occasion?: Never Total Score: 1 ZARIA-7 AMB Questionnaire ZARIA-7 Date ZARIA - 7 assessed: 11/22/24 Feeling nervous, anxious, or on edge: 0 = Not at all Not being able to stop or control worryin = Not at all Worrying too much about different things: 0 = Not at all Trouble relaxin = Not at all Being so restless that it is hard to sit still: 0 = Not at all Becoming easily annoyed or irritable: 0 = Not at all Feeling afraid as if something awful might happen: 0 = Not at all Total ZARIA-7 score (0-4 normal; 5-9 mild; 10-14 moderate; 15-21 severe): 0 Source: Developed by Drs. Luis Alberto Crawley, Graciela Wilson, Jeremy Olivares and colleagues, with an educational homer from [employer]. ZARIA-7 Assessment Billing ZARIA-7 Assessment Tool: ZARIA-7 Assessment 62734 Physical exam (Primary Care) Vital Signs: Last Vital Signs Temp 98.1 F 11/22/24 16:07 Pulse 64 11/22/24 16:07 Resp 16 11/22/24 16:07 BP 120/90 H 11/22/24 16:07 Pulse Ox 97 11/22/24 16:07 Oxygen Delivery Method Room Air 11/22/24 16:07 BMI result Body Mass Index 33.2 Tobacco/Smoking Status: Tobacco use Status Tobacco use date assessed 11/22/24 11/22/24 16:09 Patient Tobacco Use Status Never used Tobacco 11/22/24 16:09 e-Cigarette/Vaping Use Never Used 11/22/24 16:09 PHQ-9: PHQ-9 Score PHQ-9: Total score 0 11/22/24 16:13 Depression Screening Interpretation: Negative Thrive Assessment: Date of Thrive Assessment Date Thrive assessed 11/22/24 11/22/24 16:09 Currently or been in a relationship where the following occur: No concerns reported Coding Level of Care Code Est Pt Prev Care 40-64y(87752) Diagnoses Physical exam Z00.00 Screening for prostate cancer Z12.5 Additional Codes ZARIA-7 Assessment Billing - ZARIA-7 Assessment Tool: ZARIA-7 Assessment 27518 ([id number]) PHQ-9 - 74968 - PHQ-9 Billing: Yes ([id number]) Assessment & Plan Assessment & Plan (1) Physical exam: Code(s): Z00.00 - Encounter for general adult medical examination without abnormal findings Category: Medical (2) Screening for prostate cancer: Code(s): Z12.5 - Encounter for screening for malignant neoplasm of prostate Category: Medical Plan . Orders: Orders Complete Blood Count Auto Diff Today Z00.00 - Encounter for general adult medical examination without abnormal findings Comprehensive [place]. Panel Fast Today Z00.00 - Encounter for general adult medical examination without abnormal findings Prostate Specific Antigen Scr Today Z12.5 - Encounter for screening for malignant neoplasm of prostate TSH reflex Free T4 Today Z00.00 - Encounter for general adult medical examination without abnormal findings UA CC w/rflx Micro + Cult Today Z00.00 - Encounter for general adult medical examination without abnormal findings Lipid Panel Today Z00.00 - Encounter for general adult medical examination without abnormal findings Medications: New losartan 50 mg PO DAILY 90 days 90 tabs 0RF hydrochlorothiazide 25 mg PO DAILY 90 days 90 tabs 0RF Discontinued losartan-hydrochlorothiazide 50-12.5 mg Discontinued Reason: Duplicate 1 tab PO DAILY 90 tabs 0RF
== END 2024-11-22 16:48 | disposition home or self-care (01) ==
PROVIDERS: PCP Nurse Practitioner Family; Visit Provider Nurse Practitioner Family
DX: Z00.00 Encounter for general adult medical examination without abnormal findings (principal); Z12.5 Encounter for screening for malignant neoplasm of prostate

== ENCOUNTER → 2024-11-22 15:51 | Outpatient (BNVA) | payer BC, SELFPAY | PROVIDERS: PCP Nurse Practitioner Family; Visit Provider Nurse Practitioner Family | DX: Z00.00 Encounter for general adult medical examination without abnormal findings (principal) | CPT/HCPCS: 96127 ==

== ENCOUNTER 2024-12-28 08:00 | Outpatient (REF) | payer BC, SELFPAY ==
--- OUTSIDE RECORDS SUMMARY | 2024-12-28 08:55 | XMS_ITS | Encounter Summary ---
Author Organization [facility] Address [address] [place] [id number] Care Team Providers Care Mash Tub Cooker Name Role Phone Tre Blanchard MD Primary Care Provider [phone] Encounter Details Date Type Department Care Team (Late st Contact Info) Description 07/04/2024 Scanned Document [facility] [address] [place] [address] Amna Akhtar MD [address] [place] [address] [place] [address] Social History Tobacco Use Types Packs/Day Years [...] on filedocumented in this encounter Care Teams Mash Tub Cooker Relationship Specialty Start Date End Date Tre Blanchard MD [address] [place] [address] PCP - General Family Medicine 11/09/23 documented as of this encounter
--- OUTSIDE RECORDS SUMMARY | 2024-12-28 08:55 | XMS_ITS | Encounter Summary ---
Author Organization [facility] Address [address] [place] [id number] Care Team Providers Care Relief Pilot Name Role Phone Tre Blanchard MD Primary Care Provider [phone] Encounter Details Date Type Department Care Team (Late st Contact Info) Description 07/18/2024 Scanned Document [facility] [address] [place] [phone] Amna Akhtar MD [address] [place] [address] [place] [address] Social History Tobacco Use Types Packs/Day Years [...] on filedocumented in this encounter Care Teams Relief Pilot Relationship Specialty Start Date End Date Tre Blanchard MD [address] [place] [address] PCP - General Family Medicine 11/09/23 documented as of this encounter
--- OUTSIDE RECORDS SUMMARY | 2024-12-28 08:55 | XMS_ITS | Encounter Summary ---
Author Organization [facility] Address [address] [place] [address] Care Team Providers Care Fermenter Champagne Name Role Phone Benito Cuellar MD Primary Care Provider [phone] Tre Blanchard MD Primary Care Provider + [phone] Encounter Details Date Type Department Care Team (Late st Contact Info) Description 03/24/2023 Scanned Document [facility] [address] [place], [place] [phone] Amna Akhtar MD [address] [place] [address] Social History Tobacco Use Types Packs/Day Years [...] on filedocumented in this encounter Care Teams Fermenter Champagne Relationship Specialty Start Date End Date Benito Cuellar MD [address] [place] [address] [place] [address] PCP - General Internal Medicine 06/08/18 11/08/23 Tre Blanchard MD [address] [facility] [place] [address] PCP - General Family Medicine 11/09/23 documented as of this encounter
--- OUTSIDE RECORDS SUMMARY | 2024-12-28 08:55 | XMS_ITS | Clinical Summary ---
Author Organization [facility] Address [address] [place] [address] Care Team Providers Care Burial Vault Deliverer And Installer Name Role Phone Tre Blanchard MD Primary [...] Take 25 mg by mouth. 06/04/2024 Active tsorma-rieewoxmu-hr gnesium sulfates (Suprep Bowel Prep Kit) 17.5-3.13-1.6 [...] Recently Relevant to Health Maintenance Care Teams Burial Vault Deliverer And Installer Relationship Specialty Start Date End Date Tre Blanchard MD [address] [place] [address] PCP - General Family Medicine 11/09/23
--- OUTSIDE RECORDS SUMMARY | 2024-12-28 08:55 | XMS_ITS | Encounter Summary ---
Author Organization [facility] Address [address] [place] [address] Care Team Providers Care Senior Technical Specialist Name Role Phone Benito Cuellar MD Primary Care Provider [phone] Tre Blanchard MD Primary Care Provider [phone] Reason for Visit * Reason Comments Med Change Request Encounter Details Date Type Department Care Team (Late st Contact Info) Description 03/20/2023 Refill [facility] [address] [place], [place] [phone] Amna Akhtar MD [address] [place] [address] Grade II hemorrhoids Social History Tobacco Use [...] hemorrhoids documented in this encounter Care Teams Senior Technical Specialist Relationship Specialty Start Date End Date Benito Cuellar MD [address] [place] [address] [place] [address] PCP - General Internal Medicine 06/08/18 11/08/23 Tre Blanchard MD [address] [facility] [place] [address] PCP - General Family Medicine 11/09/23 documented as of this encounter
[2024-12-28 10:17] LABS: MANUAL DIFF FLAG NO
[2024-12-28 10:28] LABS: Basophils Percent Auto 0.4 % (0-2); Eosinophils Absolute Auto 0.1 X10*3/uL (0.0-0.4); Eosinophils Percent Auto 1.7 % (0-4); Hematocrit 46.2 % (42.0-52.0); Hemoglobin 15.7 g/dl (14.0-18.0); Imm Gran Abs Auto 0.03 X10*3/uL (0.00-0.03); Imm Gran Pct Auto 0.4 % (0.0-0.4); Lymphocytes Absolute Auto 1.2 X10*3/uL (1.2-4.9); Mean Corpuscular Hemoglobin 30.2 pg (27.0-33.0); Mean Corpuscular Volume 88.8 fL (80.0-98.0); Mean Platelet Volume 9.6 fL (9.4-12.4); Monocytes Absolute Auto 0.7 X10*3/uL (0.1-1.2); Neutrophils Absolute Auto 6.3 x10*3/uL (2.0-8.3); Neutrophils Percent Auto 75.5 % (45-73); Platelet Count 274 X10*3/uL (160-400); Red Cell Distribution Width 12.8 % (11.0-16.0); White Blood Count 8.4 X10*3/uL (4.8-10.8)
[2024-12-28 10:48] LABS: Alanine Aminotransferase 37 U/L (0-40); Albumin Level 4.5 g/dL (3.5-5.0); Alkaline Phosphatase 56 U/L (39-117); Anion Gap 11 (12-20); Aspartate Amino Transferase 27 U/L (5-37); Blood Urea Nitrogen 13 mg/dL (9-16); Calcium 9.7 mg/dL (8.4-10.2); Carbon Dioxide 29 mmol/L (22-29); Chloride 103 mmol/L (96-108); Cholesterol 171 mg/dL (<200); Estimated Glomerular Filt Rate > 60; Glucose Fasting 106 mg/dL (60-99); HDL Cholesterol 49 mg/dL (>40); LDL Cholesterol Calculated 97 mg/dL (<100); Potassium 3.9 mmol/L (3.3-5.1); Sodium 139 mmol/L (135-145); Total Protein 7.9 g/dL (6.5-8.0); Triglycerides 128 mg/dL (<150)
[2024-12-28 11:06] LABS: TSH reflex Free T4 1.37 uIU/mL (0.32-4.0)
[2024-12-28 11:07] LABS: Prostate Specific Antigen Scr 0.54 ng/mL (<0.05-4.0)
[2024-12-28 13:55] LABS: Appearance Urine Clear; Color Urine Yellow; Glucose Urine UA Negative (Negative); Leukocyte Esterase Urine Negative (Negative); Nitrite Urine Negative (Negative); PH 7.5 (5.0-9.0); Urine Blood Negative (Negative); Urine Ketones Negative (Negative); Urine Protein Negative (Neg-Trace)
== END 2024-12-28 08:01 | disposition home or self-care (01) ==
LOC: HO.HMGCLDS 08:00
PROVIDERS: PCP Nurse Practitioner Family; Visit Provider Nurse Practitioner Family
DX: Z00.00 Encounter for general adult medical examination without abnormal findings (principal); Z12.5 Encounter for screening for malignant neoplasm of prostate; Z13.6 Encounter for screening for cardiovascular disorders
CPT/HCPCS: 36415; 80053; 80061; 81003; 84153; 84443; 85025

== ENCOUNTER 2024-12-28 08:00 | Outpatient (AMB) | payer BC, SELFPAY ==
--- OUTSIDE RECORDS SUMMARY | 2024-12-28 08:02 | XMS_ITS | Encounter Summary ---
Author Organization [facility] Address [address] [place] [address] Care Team Providers Care Settlement Worker Name Role Phone Tre Blanchard MD Primary Care Provider [phone] Encounter Details Date Type Department Care Team (Late st Contact Info) Description 07/18/2024 Scanned Document [facility] [address] [place] [phone] Amna Akhtar MD [address] [place] [address] [place] [address] Social History Tobacco Use Types Packs/Day Years [...] on filedocumented in this encounter Care Teams Settlement Worker Relationship Specialty Start Date End Date Tre Blanchard MD [address] [place] [address] PCP - General Family Medicine 11/09/23 documented as of this encounter
--- OUTSIDE RECORDS SUMMARY | 2024-12-28 08:02 | XMS_ITS | Encounter Summary ---
Author Organization [facility] Address [address] [place] [address] Care Team Providers Care Pilot Submersible Name Role Phone Benito Cuellar MD Primary Care Provider [phone] Tre Blanchard MD Primary Care Provider + [phone] Encounter Details Date Type Department Care Team (Late st Contact Info) Description 03/24/2023 Scanned Document [facility] [address] [place], [place] [phone] Amna Akhtar MD [address] [place] [address] Social History Tobacco Use Types Packs/Day Years [...] on filedocumented in this encounter Care Teams Pilot Submersible Relationship Specialty Start Date End Date Benito Cuellar MD [address] [place] [address] [place] [address] PCP - General Internal Medicine 06/08/18 11/08/23 Tre Blanchard MD [address] [facility] [place] [address] PCP - General Family Medicine 11/09/23 documented as of this encounter
--- OUTSIDE RECORDS SUMMARY | 2024-12-28 08:02 | XMS_ITS | Clinical Summary ---
Author Organization [facility] Address [address] [place] [address] Care Team Providers Care Workforce Specialist Name Role Phone Tre Blanchard MD Primary [...] Take 25 mg by mouth. 06/04/2024 Active lpxrqy-tcwqxlgiz-ec gnesium sulfates (Suprep Bowel Prep Kit) 17.5-3.13-1.6 [...] Recently Relevant to Health Maintenance Care Teams Workforce Specialist Relationship Specialty Start Date End Date Tre Blanchard MD [address] [place] [address] PCP - General Family Medicine 11/09/23
--- OUTSIDE RECORDS SUMMARY | 2024-12-28 08:02 | XMS_ITS | Encounter Summary ---
Author Organization [facility] Address [address] [place] [address] Care Team Providers Care Grating Machine Operator Name Role Phone Tre Blanchard MD Primary Care Provider [phone] Encounter Details Date Type Department Care Team (Late st Contact Info) Description 07/04/2024 Scanned Document [facility] [address] [place] [address] Amna Akhtar MD [address] [place] [address] [place] [address] Social History Tobacco Use Types Packs/Day Years [...] on filedocumented in this encounter Care Teams Grating Machine Operator Relationship Specialty Start Date End Date Tre Blanchard MD [address] [place] [address] PCP - General Family Medicine 11/09/23 documented as of this encounter
--- OUTSIDE RECORDS SUMMARY | 2024-12-28 08:02 | XMS_ITS | Encounter Summary ---
Author Organization [facility] Address [address] [place] [address] Care Team Providers Care Auto Body Mechanic Name Role Phone Benito Cuellar MD Primary Care Provider [phone] Tre Blanchard MD Primary Care Provider + [phone] Reason for Visit * Reason Comments Med Change Request Encounter Details Date Type Department Care Team (Late st Contact Info) Description 03/20/2023 Refill [facility] [address] [place], [place] [phone] Amna Akhtar MD [address] [place] [address] Grade II hemorrhoids Social History Tobacco Use [...] hemorrhoids documented in this encounter Care Teams Auto Body Mechanic Relationship Specialty Start Date End Date Benito Cuellar MD [address] [place] [address] [place] [address] PCP - General Internal Medicine 06/08/18 11/08/23 Tre Blanchard MD [address] [facility] [place] [address] PCP - General Family Medicine 11/09/23 documented as of this encounter
--- NOTE | 2024-12-28 08:03 | AM.OFFWIN_ITS ---
Intake Vital Signs 12/28/24 08:07 Weight 244 lb BP 122/80 Blood Pressure Location Rt brachial Position Sitting Pulse 88 Pulse Source Pulse Oximeter Pulse Oximetry (%) 97 Oxygen Delivery Method Room Air Intake Visit Reasons: EP Pain in lower rt abdomen/muscle? Intake Note: Patient here for lower abdominal pain that has been present for 2 days. Patient Tobacco Use Status: Never used Tobacco Allergies No Known Allergies [No Known Allergies*] Allergy (Verified 12/28/24 08:09) Do you need a note to return to daycare/school/sports/work: No HPI HPI Comments History of Present Illness Details History of Present Illness - The patient is a 49-year-old male pres enting with lower abdominal pain. - Complains of pain onset two days ago, shortly after engaging in an atypical workout. - Pain principally resides in the right lower quadrant with occasional radiating sensations to the lower back and across the abdomen. - Denies any accompanying systemic sympt oms such as nausea, fever, and urinary disturbances. Denies blood in his urine. - No previous issues noted during a past colonoscopy; has not had an appendectomy. - Activities like walking are generally unaffected, except in specific positions where discomfort increases. - Avoids NSAIDs due to gastric intoleran ce, partial relief achieved through the application of heat. Physical Exam General: Cooperative, healthy appearing, comfortable, no acute distress and well developed Orientation: Patient oriented x3 Limitations: No limitations Head: Normal to inspection Ears: Hearing grossly normal bilaterally Nose: Normal external nose present Face and sinus: Normal facial exam Eyes: Appearance normal, both eyes and all related structures Neck: Normal visual inspection and Yes full ROM Respiratory: Normal respiratory effort and able to speak in complete sentences. GI: soft, normoactive BS, negative muprhy's, RLQ TTP both superficial and deep (very mildly positive McBurneys) Skin: No rashes or lesions noted Neuro: Patient oriented x3 Extremities: Normal to inspection [facility] Medical History HTN (hypertension) Anxiety and depression Eczema Surgical History History of exam under anesthesia with hemorrhoid banding Social History Housing: House Patient Tobacco Use Status: Never used Tobacco e-Cigarette/Vaping Use: Never Used service: No Current occupational status: employed Current occupation: [employer] Cognitive needs: No Hearing needs: No Vision needs: Yes Review of Systems Const All systems reviewed & are unremarkable except as noted in HPI and below Physical Exam Vital Signs: Last Vital Signs Pulse 88 12/28/24 08:07 BP 122/80 12/28/24 08:07 Pulse Ox 97 12/28/24 08:07 Oxygen Delivery Method Room Air 12/28/24 08:07 Assessment & Plan Assessment & Plan (1) Abdominal pain: Code(s): R10.9 - Unspecified abdominal pain Qualifiers: Abdominal location: right lower quadrant Qualified Code(s): R10.31 - Right lower quadrant pain Plan: VSS,pt well appearing and PE remarkable for RLQ pain with superficial and deep palpation For the suspected sources of pain, namely appendicitis and musculoskeletal involvement, it is essential to distinguish between the two using present symptoms and further monitoring. The patient was instructed to apply topical analgesics like diclofenac gel or similar products for musculoskeletal pain management and to use a heating pad since it provided relief previously. Due to concerns over appendiceal inflammation, the patient should observe for any increase in pain, fever, or inability to ingest food, all signs that could suggest escalation and necessitate an emergency evaluation. The patient also received guidance on self-assessment strategies, such as noting changes in discomfort with movement to aid in discerning potential appendicular pain. Patient was informed and verbally consented to the use of an ambient scribe for clinic note documentation during this visit. Coding Level of Care Code Est Pt Level 3 (90738) Diagnoses Right lower quadrant abdominal pain R10.31 Abdominal location: right lower quadrant
[2024-12-28 08:07] VITALS: BP 122/80; PULSE 88; O2SAT 97
== END 2024-12-28 08:48 | disposition home or self-care (01) ==
PROVIDERS: PCP Nurse Practitioner Family; Visit Provider Physician Assistant
DX: R10.31 Right lower quadrant pain (principal)

== ENCOUNTER → 2025-02-16 15:54 | Outpatient (BNVA) | payer BC, SELFPAY | PROVIDERS: PCP Nurse Practitioner Family; Visit Provider Nurse Practitioner Family ==